=== PATIENT | male | born 1990 | race Caucasian/White ===

== ENCOUNTER → 2016-04-13 | Outpatient (REF) | payer OTHER | LOC: M SMT 16:58 | PROVIDERS: ATTEND Nurse Practitioner Women's Health | DX: R39.11 Hesitancy of micturition (principal) ==

== ENCOUNTER → 2016-05-12 | Outpatient (CLI) | payer OTHER ==
[~2016-05-12] MED LIST: ISOVUE-370 76% 100ML VIAL (Q9967) As Ordered ONE
--- NOTE | 2016-05-12 17:41 | REP ---
Clinical: History of sarcoma. Technique: Axial contrast enhanced images from the thoracic inlet to the upper abdomen using 100 ml Isovue 370 intravenous contrast material with coronal and sagittal re-formations. Findings: Bilateral lung mckeon are symmetric, well aerated, and clear. No acute consolidation, nodule or mass lesion. No pleural effusion/reaction or pneumothorax. Tracheobronchial tree is patent. Mediastinum demonstrates normal thoracic aorta and heart/pericardium. No axillary, hilar, or mediastinal adenopathy. Surrounding musculoskeletal structures are intact and normal. Limited evaluation of the upper abdomen demonstrates normal bilateral adrenal glands. Impression: Normal contrast enhanced chest CT. Signed by Shravan Lyons MD 05/12/2016 05:33 P
== END ==
LOC: M RAD 17:00
PROVIDERS: ATTEND Internal Medicine Hematology & Oncology
DX: C49.21 Malignant neoplasm of connective and soft tissue of right lower limb, including hip (principal)

== ENCOUNTER → 2016-05-13 | Outpatient (CLI) | payer OTHER ==
--- NOTE | 2016-05-16 08:53 | REP ---
MRI right femur without and with IV gadolinium: History: Restaging sarcoma right thigh. Comparison MRI study is from [facility] dated July 22, 2015. Technique: Axial, coronal and sagittal imaging planes are utilized. MR markers are affixed to the skin above and below the resection site prior to the study. The gadolinium enhancement dose is 15 ml of intravenous ProHance. MRI findings: There is a focal postoperative deficiency in the subcutaneous fat layer of the anteromedial aspect of the proximal thigh at the surgical resection site as before consistent with a scar. The previously noted area of subdermal contrast enhancement at the site of the surgical scar is no longer apparent. There is no evidence of mass or abnormal fluid collection. The skeletal muscle and other soft tissues are normal in signal intensity and contour on T1 and T2-weighted scans. Cortical and medullary bone signal intensity are normal. No vascular abnormality is seen. No adenopathy is visible. Impression: No MR evidence of recurrent mass or kate disease. Signed by Richard Koehler MD 05/16/2016 03:19 P
== END ==
LOC: M RAD 15:35
PROVIDERS: ATTEND Internal Medicine Hematology & Oncology
DX: C49.9 Malignant neoplasm of connective and soft tissue, unspecified (principal)